=== PATIENT | male | born 1940 | race Caucasian/White ===

== ENCOUNTER 2018-01-06 17:52 | Inpatient (IN) | payer OTHER ==
[~2018-01-06] VITALS: Ht 170.2 cm; Wt 86.2 kg
[~2018-01-06 17:52] MED LIST: AMLODIPINE BESYL5 MG PO; ARICEPT5 MG PO; AZOPT OPHT; AZOPT5 ML; CIPRO250 MG PO; COMBIGAN EYE DRO5 ML; COMBIGAN OPHT; COZAAR100 MG PO; DONEPEZIL HCL5 MG; FENOFIBRATE54 MG; FLAGYL500MG PO; KEPPRA500 MG PO; LEVETIRACETAM250 MG; LOSARTAN-HCTZ1 EAC2; LUMIGAN OPHT; LUMIGAN2.5 M1; NORVASC5 MG
[2018-01-12] MEDS ORDERED: CIPRO250 MG PO (11:25)
[2018-01-12] MEDS ORDERED: FLAGYL500MG PO (11:26)
== END 2018-01-12 15:05 | disposition home or self-care (01) | DRG 392 ==
LOC: ER 17:52 → MEDI 01-07 12:49
DX: K57.00 Diverticulitis of small intestine with perforation and abscess without bleeding (principal); N17.8 Other acute kidney failure; E86.0 Dehydration; N18.3 Chronic kidney disease, stage 3 (moderate); I12.9 Hypertensive chronic kidney disease with stage 1 through stage 4 chronic kidney disease, or unspecified chronic kidney disease; I25.10 Atherosclerotic heart disease of native coronary artery without angina pectoris; H91.8X3 Other specified hearing loss, bilateral; K57.30 Diverticulosis of large intestine without perforation or abscess without bleeding

== ENCOUNTER 2018-03-18 23:35 | Inpatient (IN) | payer OTHER ==
[~2018-03-18] VITALS: Ht 170.2 cm; Wt 85.7 kg
[2018-03-19] MEDS ORDERED: DONEPEZIL HCL5 MG PO (00:25)
[2018-03-27] MEDS ORDERED: ELIQUIS5 MG PO (11:53)
== END 2018-03-27 13:42 | disposition home or self-care (01) | DRG 372 ==
LOC: ER 23:35 → MEDJ 03-19 15:36
PROC: BW21ZZZ Computerized Tomography (CT Scan) of Abdomen and Pelvis (ICD-10-PCS; principal; 2018-03-19)
PROC: B54DZZZ Ultrasonography of Bilateral Lower Extremity Veins (ICD-10-PCS; 2018-03-21)
DX: A05.0 Foodborne staphylococcal intoxication (principal); N17.8 Other acute kidney failure; L03.116 Cellulitis of left lower limb; L03.115 Cellulitis of right lower limb; I82.442 Acute embolism and thrombosis of left tibial vein; E86.0 Dehydration; I12.9 Hypertensive chronic kidney disease with stage 1 through stage 4 chronic kidney disease, or unspecified chronic kidney disease; I87.2 Venous insufficiency (chronic) (peripheral); H91.3 Deaf nonspeaking, not elsewhere classified; I25.10 Atherosclerotic heart disease of native coronary artery without angina pectoris; Z86.73 Personal history of transient ischemic attack (TIA), and cerebral infarction without residual deficits; N18.3 Chronic kidney disease, stage 3 (moderate); E78.4 Other hyperlipidemia; E21.2 Other hyperparathyroidism

== ENCOUNTER → 2019-01-05 | Outpatient (CLI) | payer OTHER ==
[~2019-01-05] MED LIST changes: +DONEPEZIL HCL5 MG PO; +ELIQUIS5 MG PO
== END | disposition home or self-care (01) ==
LOC: LAB 10:52 → EKG 10:52
DX: I10 Essential (primary) hypertension (principal)